=== PATIENT | female | born 1995 | race Two or more races ===

== ENCOUNTER 2017-02-07 10:22 | Emergency (ER) | payer OTHER ==
[~2017-02-07] VITALS: Ht 162.6 cm; Wt 68.0 kg
[~2017-02-07 10:22] MED LIST: IBUPROFEN600 MG ORAL; NORCO 5-325 TA1 EACH ORAL
[2017-02-07] MEDS ORDERED: NKM (10:28)
[2017-02-07] MEDS ORDERED: Acetaminophen 500mg (ES) tab ORAL ONE (10:45)
[2017-02-07] MEDS ORDERED: PENICILLIN V P500 MG PO (10:51)
[2017-02-07] MEDS ORDERED: IBUPROFEN600 MG ORAL (10:59)
[2017-02-07 11:15] VITALS: BP 131/87
[2017-02-07] MEDS ORDERED: Lidocaine 2% Visc 15ml soln ORAL ONE (11:15)
[2017-02-07 11:17] VITALS: BP 131/87
--- NOTE | 2017-02-11 06:51 | Emergency Room Report ---
History of Present Illness General Chief Complaint: Toothache Source: Patient Present Illness HPI Patient's 21-year-old female presented after increased toothache to the upper and lower jaw. Patient gradual onset of symptoms were the past few weeks. She denies any fever. She reported having taken Tylenol without improvement in the pain. Patient denies any jaw swelling. She denied recent trauma Allergies: Coded Allergies: No Known Allergies (Unverified , 03/25/15) Patient History Past Medical History: see triage record Last Menstrual Period: 01/24/17 Now: No Reviewed Nursing Documentation: PMH: Agreed, PSxH: Agreed Nursing Documentation-PMH Past Medical History: No Stated History Review of Systems All Other Systems: negative except mentioned in HPI Physical Exam Vital Signs Date Time Temp Pulse Resp B/P (MAP) Pulse Ox O2 Delivery O2 Flow Rate FiO2 02/07/17 10:25 97.7 80 17 131/87 100 Room Air General Appearance: well appearing, no apparent distress, alert, GCS 15 Head: normocephalic, atraumatic ENT: hearing grossly normal, normal voice, other - partially erupted wisdom teeth to upper and lower right side Neck: full range of motion, supple Respiratory: no respiratory distress, speaking full sentences Musculoskeletal: no calf tenderness Neurologic: normal gait Psychiatric: mood/affect normal Skin: no rash Medical Decision Making Diagnostic Impression: Primary Impression: Toothache ER Course Patient presented for dental pain. Differential diagnosis included but was not limited to trigeminal neuralgia, dental abscess, dry socket, osteomyelitis, nerve injury. The patient was noted to have a benign exam. There is no evidence of abscess at this time. Patient given prescription for penicillin and advised followup with her dentist or oral surgeon Patient is advised to return if any worsening condition or if any changes in status that are concerning. Last Vital Signs Date Time Temp Pulse Resp B/P (MAP) Pulse Ox O2 Delivery O2 Flow Rate FiO2 02/07/17 11:17 97.7 67 17 131/87 100 Room Air Status: improved Disposition: HOME, SELF-CARE Condition: Stable Scripts Ibuprofen* (MOTRIN*) 600 Mg Tablet 600 MG ORAL Q8H Y for For Pain, #30 TAB 0 Refills Prov: Lawrence Tesfaye 02/07/17 Penicillin V Potassium* (PENVK*) 500 Mg Tablet 500 MG PO Q6H, #28 TAB 0 Refills Prov: Lawrence Tesfaye 02/07/17 Patient Instructions: Dental Pain Additional Instructions: follow up with your dentist or oral surgeon in the next 1-2 days Lawrence Tesfaye Feb 11, 2017 06:51
== END 2017-02-07 11:20 | disposition home or self-care (01) ==
LOC: EMR 10:45
DX: K08.89 Other specified disorders of teeth and supporting structures (principal)
CPT/HCPCS: 81025; 99283